=== PATIENT | female | born 1970 | race Two or more races ===

== ENCOUNTER 2022-02-25 19:44 | Inpatient (IN) | payer MEDICAID ==
[~2022-02-25] VITALS: Ht 157.5 cm; Wt 110.0 kg
[2022-02-25] MEDS ORDERED: ACETAMINOPHEN 325 MG TAB PO ONE (20:15)
[2022-02-25 20:46] LABS: Basophils # (auto) 0 10 ^3/uL (0-0.2); Basophils % (auto) 0.4 % (0.0-2.0); Eosinophils # (auto) 0 10 ^3/uL (0-0.8); Eosinophils % (auto) 0.2 % (0.0-7.0); Hemoglobin 10.6 g/dL (12.2-16.2); Lymphocytes # (auto) 0.3 10 ^3/uL (0.4-5.4); Monocytes # (auto) 0 10 ^3/uL (0-1.3); Neutrophils # (auto) 3.3 10 ^3/uL (1.6-8.6); White Blood Cell 3.6 10^3/uL (4.4-10.8)
[2022-02-25 20:48] LABS: Lymphocytes % (auto) 8.4 % (10.0-50.0); Mean Corpuscular Hemoglobin 26.6 pg (28.0-32.0); Mean Corpuscular Hgb Conc. 32.2 g/dL (32.0-36.0); Mean Corpuscular Volume 82.4 fL (80.0-100.0); Monocytes % (auto) 0.4 % (0.0-12.0); Neutrophils % (auto) 90.6 % (37.0-80.0); Nucleated Red Blood Cells % 1.8 %; Red Cell Distribution Width 18.4 % (11.8-14.3)
[2022-02-25 20:54] LABS: Albumin 2.6 g/dL (3.4-5.0); Calcium 7.8 mg/dL (8.5-10.1); Magnesium 1.9 mg/dL (1.6-2.6); Potassium 4.4 mmol/L (3.5-5.1)
[2022-02-25 20:57] LABS: BUN/Creatinine Ratio 26.2; Bilirubin, Total 0.5 mg/dL (0.2-1.0); Lactic Acid w/Reflex 5.4 mmol/L (0.4-2.0); Total Protein 5.4 g/dL (6.4-8.2)
[2022-02-25 21:14] LABS: INR 1.04 (0.9-1.15); Partial Thromboplastin Time 22.2 sec (24.6-33.4)
[2022-02-25] MEDS ORDERED: AZITHROMYCIN 500MG/ 250ML 250 ML IV ONE (23:30)
[2022-02-25] MEDS ORDERED: SODIUM CHLORIDE 0.9% 1,000 ML IV ONE (23:30)
[2022-02-25] MEDS ORDERED: cefTRIAXone 1GM/50ML D5W 50 ML IV ONE (23:30)
[2022-02-26] MEDS ORDERED: SODIUM CHLORIDE 0.9% 1,000 ML IV ONE (01:00)
[2022-02-26] MEDS ORDERED: NOREPINEPHRINE 8 MG/250ML KIT 250 ML IV ONE (01:58)
[2022-02-26] MEDS: NOREPINEPHRINE 8 MG/250ML KIT 250 ML IV SCH ×2 (02:00→12:13)
[2022-02-26] MEDS ORDERED: ACETAMINOPHEN 325 MG TAB PO PRN (03:45)
[2022-02-26] MEDS ORDERED: HYDROcodone-ACET 5/325MG TAB PO PRN (03:45)
[2022-02-26] MEDS ORDERED: DOCUSATE SOD 100 MG CAP PO PRN (03:45)
[2022-02-26] MEDS ORDERED: SODIUM CHLORIDE 0.9% 1,000 ML IV SCH (03:45)
[2022-02-26 05:59] LABS: Mean Corpuscular Hemoglobin 25.8 pg (28.0-32.0); Red Cell Distribution Width 18.5 % (11.8-14.3)
[2022-02-26 06:07] LABS: Hematocrit 32.1 % (36.0-46.0); Red Blood Cells 3.87 10^6/uL (4.0-5.20); White Blood Cell 22.2 10^3/uL (4.4-10.8)
[2022-02-26 06:16] LABS: Calcium 7.2 mg/dL (8.5-10.1); Potassium 4.4 mmol/L (3.5-5.1)
[2022-02-26 06:18] LABS: BUN/Creatinine Ratio 17.1
[2022-02-26 06:39] LABS: Basophils % (manual) 0 (0.0-2.0); Blast Cells 0; Eosinophils % (manual) 0 (0-7); Metamyelocytes % 0; Myelocytes % 0; Promyelocytes % 0; Reactive Lymphocytes 0
[2022-02-26] MEDS ORDERED: VANCOMYCIN 1GM/250ML 250 ML IV ONE (07:15)
[2022-02-26 08:03] LABS: Urine Specific Gravity 1.017 (1.001-1.035)
[2022-02-26 08:04] LABS: Urine Blood Negative /uL (Negative)
[2022-02-26 09:06] LABS: Band Neutrophils % (manual) 34; Lymphocytes % (manual) 11 (10.0-50.0); Monocytes % (manual) 3 (0-12)
[2022-02-26] MEDS: MORPHINE SULFATE INJ 2 MG/ml SYRG IV PRN ×2 (12:28→21:46)
[2022-02-26] MEDS: LIDOCAINE 1% (LOCAL ANESTH.) PF 5ml SDV ID ONE (15:00)
[2022-02-26] MEDS ORDERED: LACTATED RINGER'S 1,000 ML IV ONE (16:15)
[2022-02-26] MEDS: SODIUM BICARBONATE 50ML VIAL 50 ML in SOD CHL 0.45% 1,000 ML IV SCH (17:21)
[2022-02-26] MEDS: MEROPENEM 1GM IVPB 100 ML IV SCH (17:23)
[2022-02-26] MEDS ORDERED: AZITHROMYCIN 500MG/ 250ML 250 ML IV SCH (22:00)
[2022-02-26] MEDS ORDERED: cefTRIAXone 1GM/50ML D5W 50 ML IV SCH (22:00)
[2022-02-26] MEDS ORDERED: MEROPENEM 500MG IVPB 50 ML IV SCH (22:00)
[2022-02-26] MEDS: SODIUM CHLOR 0.9% PF (SALINE LOCK) 10ML VIAL/SYR IV SCH (22:06)
[2022-02-26] MEDS ORDERED: DEXTROSE (50%) 50ML SYRG IV PRN (22:15)
[2022-02-27] MEDS: ACCU-CHEK COMFORT CURVE STRIP VI SCH ×6 (00:10→20:12)
[2022-02-27] MEDS: InsuLIN REG 1unit/0.01ml Soln (100units/ml) SC SCH ×6 (00:10→20:00)
[2022-02-27] MEDS: SODIUM BICARBONATE 50ML VIAL 50 ML in SOD CHL 0.45% 1,000 ML IV SCH ×3 (01:42→17:54)
[2022-02-27] MEDS: MEROPENEM 1GM IVPB 100 ML IV SCH ×2 (05:11→17:00)
[2022-02-27 06:12] LABS: Potassium 4.5 mmol/L (3.5-5.1)
[2022-02-27 06:59] LABS: Hematocrit 28.3 % (36.0-46.0); Hemoglobin 9.1 g/dL (12.2-16.2); Mean Corpuscular Hemoglobin 26.7 pg (28.0-32.0); Mean Corpuscular Volume 83.5 fL (80.0-100.0); Red Blood Cells 3.39 10^6/uL (4.0-5.20); Red Cell Distribution Width 18.6 % (11.8-14.3); White Blood Cell 22.6 10^3/uL (4.4-10.8)
[2022-02-27] MEDS ORDERED: InsuLIN REG 1unit/0.01ml Soln (100units/ml) SC SCH (07:00)
[2022-02-27 07:14] LABS: Basophils % (manual) 0 (0.0-2.0); Blast Cells 0; Eosinophils % (manual) 0 (0-7); Myelocytes % 0; Promyelocytes % 0; Reactive Lymphocytes 0
[2022-02-27 09:41] LABS: Creatine Kinase IFCC 708 U/L (26-192)
[2022-02-27] MEDS: SODIUM CHLOR 0.9% PF (SALINE LOCK) 10ML VIAL/SYR IV SCH ×2 (10:00→22:21)
[2022-02-27 10:37] LABS: Band Neutrophils % (manual) 21; Lymphocytes % (manual) 4 (10.0-50.0); Metamyelocytes % 1; Monocytes % (manual) 1 (0-12)
[2022-02-27 11:02] LABS: CRP High Sensitivity > 19 mg/dL (< 0.3)
[2022-02-27] MEDS: ONDANSETRON HCL 4 MG/2 ML VIAL IV PRN (16:42)
[2022-02-27] MEDS: MORPHINE SULFATE INJ 2 MG/ml SYRG IV PRN (16:42)
[2022-02-28] MEDS: ACCU-CHEK COMFORT CURVE STRIP VI SCH ×6 (00:14→19:56)
[2022-02-28] MEDS: ONDANSETRON HCL 4 MG/2 ML VIAL IV PRN (01:22)
[2022-02-28] MEDS: MORPHINE SULFATE INJ 2 MG/ml SYRG IV PRN (01:23)
[2022-02-28] MEDS: SODIUM BICARBONATE 50ML VIAL 50 ML in SOD CHL 0.45% 1,000 ML IV SCH (01:51)
[2022-02-28] MEDS: NOREPINEPHRINE 8 MG/250ML KIT 250 ML IV SCH (02:30)
[2022-02-28] MEDS: InsuLIN REG 1unit/0.01ml Soln (100units/ml) SC SCH ×6 (04:00→19:57)
[2022-02-28] MEDS: MEROPENEM 1GM IVPB 100 ML IV SCH (05:04)
[2022-02-28 06:32] LABS: Basophils # (auto) 0 10 ^3/uL (0-0.2); Basophils % (auto) 0.2 % (0.0-2.0); Eosinophils # (auto) 0 10 ^3/uL (0-0.8); Lymphocytes # (auto) 0.7 10 ^3/uL (0.4-5.4); Neutrophils # (auto) 14.5 10 ^3/uL (1.6-8.6)
[2022-02-28 06:33] LABS: Eosinophils % (auto) 0.2 % (0.0-7.0); Hematocrit 24.1 % (36.0-46.0); Hemoglobin 7.8 g/dL (12.2-16.2); Lymphocytes % (auto) 4.7 % (10.0-50.0); Mean Corpuscular Hemoglobin 26.9 pg (28.0-32.0); Mean Corpuscular Hgb Conc. 32.4 g/dL (32.0-36.0); Mean Corpuscular Volume 83.1 fL (80.0-100.0); Monocytes # (auto) 0.5 10 ^3/uL (0-1.3); Neutrophils % (auto) 91.9 % (37.0-80.0); Red Blood Cells 2.91 10^6/uL (4.0-5.20); Red Cell Distribution Width 18.2 % (11.8-14.3); White Blood Cell 15.8 10^3/uL (4.4-10.8)
[2022-02-28 06:48] LABS: Albumin 1.9 g/dL (3.4-5.0); Calcium 7.5 mg/dL (8.5-10.1)
[2022-02-28 06:54] LABS: BUN/Creatinine Ratio 32.5; Bilirubin, Total 0.7 mg/dL (0.2-1.0); Total Protein 4.9 g/dL (6.4-8.2)
[2022-02-28] MEDS: SODIUM CHLOR 0.9% PF (SALINE LOCK) 10ML VIAL/SYR IV SCH ×2 (11:01→22:10)
[2022-02-28] MEDS: SOD CHL 0.45% 1,000 ML IV SCH ×2 (11:01→22:20)
[2022-02-28 16:00] VITALS: BP 107/66
[2022-02-28 16:38] VITALS: BP 107/66
[2022-02-28 16:45] VITALS: BP 107/66
[2022-02-28] MEDS ORDERED: EMPA1TAB PO (17:32)
[2022-02-28] MEDS: ERTAPENEM SOD INJ 1 GM in SODIUM CHL 0.9% 50 ML IV SCH (18:09)
[2022-02-28 22:00] VITALS: BP 122/71
[2022-03-01] MEDS: NOREPINEPHRINE 8 MG/250ML KIT 250 ML IV SCH (02:30)
[2022-03-01] MEDS: InsuLIN REG 1unit/0.01ml Soln (100units/ml) SC SCH ×7 (04:00→23:13)
[2022-03-01] MEDS: ACCU-CHEK COMFORT CURVE STRIP VI SCH ×7 (04:00→23:13)
[2022-03-01 05:00] VITALS: BP 139/84
[2022-03-01 05:46] LABS: Chloride 113 mmol/L (98-107); Potassium 4.1 mmol/L (3.5-5.1); Sodium 143 mmol/L (136-145)
[2022-03-01 05:51] LABS: Anion Gap 6 (5-15); BUN/Creatinine Ratio 22.9; Blood Urea Nitrogen 16 mg/dL (7-18); Calcium 7.4 mg/dL (8.5-10.1); Carbon Dioxide 24 mmol/L (21-32); GFR African American 113 mL/min; GFR Non-African American 94 mL/min; Glucose 78 mg/dL (74-106)
[2022-03-01 06:23] LABS: Basophils # (auto) 0 10 ^3/uL (0-0.2); Basophils % (auto) 0.4 % (0.0-2.0); Eosinophils # (auto) 0.1 10 ^3/uL (0-0.8); Eosinophils % (auto) 1.1 % (0.0-7.0); Hematocrit 24.8 % (36.0-46.0); Hemoglobin 8.1 g/dL (12.2-16.2); Lymphocytes # (auto) 0.8 10 ^3/uL (0.4-5.4); Lymphocytes % (auto) 9.2 % (10.0-50.0); Mean Corpuscular Hemoglobin 26.2 pg (28.0-32.0); Mean Corpuscular Hgb Conc. 32.4 g/dL (32.0-36.0); Mean Corpuscular Volume 80.8 fL (80.0-100.0); Monocytes # (auto) 0.3 10 ^3/uL (0-1.3); Neutrophils # (auto) 7.1 10 ^3/uL (1.6-8.6); Neutrophils % (auto) 85.3 % (37.0-80.0); Red Blood Cells 3.07 10^6/uL (4.0-5.20); Red Cell Distribution Width 17.6 % (11.8-14.3); White Blood Cell 8.4 10^3/uL (4.4-10.8)
[2022-03-01 08:00] VITALS: BP 145/86
[2022-03-01 09:00] VITALS: BP 145/86
[2022-03-01] MEDS: ERTAPENEM SOD INJ 1 GM in SODIUM CHL 0.9% 50 ML IV SCH (10:33)
[2022-03-01] MEDS: SODIUM CHLOR 0.9% PF (SALINE LOCK) 10ML VIAL/SYR IV SCH ×2 (10:33→22:00)
[2022-03-01] MEDS: SOD CHL 0.45% 1,000 ML IV SCH (11:40)
[2022-03-01 13:00] VITALS: BP 137/84
[2022-03-01 17:00] VITALS: BP 153/85
[2022-03-01 21:41] VITALS: BP 146/80
[2022-03-02] MEDS: SOD CHL 0.45% 1,000 ML IV SCH ×2 (00:11→14:20)
[2022-03-02] MEDS: InsuLIN REG 1unit/0.01ml Soln (100units/ml) SC SCH ×5 (03:53→20:55)
[2022-03-02] MEDS: ACCU-CHEK COMFORT CURVE STRIP VI SCH ×5 (03:53→20:00)
[2022-03-02 04:50] VITALS: BP 150/84
[2022-03-02 05:48] LABS: Basophils # (auto) 0 10 ^3/uL (0-0.2); Eosinophils # (auto) 0.1 10 ^3/uL (0-0.8); Hemoglobin 8.2 g/dL (12.2-16.2); Lymphocytes # (auto) 0.7 10 ^3/uL (0.4-5.4); Mean Corpuscular Hemoglobin 27.1 pg (28.0-32.0); Monocytes # (auto) 0.5 10 ^3/uL (0-1.3); Neutrophils # (auto) 2.3 10 ^3/uL (1.6-8.6); Nucleated Red Blood Cells % 0.2 %
[2022-03-02 05:51] LABS: Basophils % (auto) 0.8 % (0.0-2.0); Eosinophils % (auto) 3.3 % (0.0-7.0); Hematocrit 25.1 % (36.0-46.0); Lymphocytes % (auto) 19.5 % (10.0-50.0); Mean Corpuscular Hgb Conc. 32.7 g/dL (32.0-36.0); Mean Corpuscular Volume 82.9 fL (80.0-100.0); Monocytes % (auto) 12.7 % (0.0-12.0); Neutrophils % (auto) 63.7 % (37.0-80.0); Red Blood Cells 3.03 10^6/uL (4.0-5.20); Red Cell Distribution Width 17.4 % (11.8-14.3); White Blood Cell 3.6 10^3/uL (4.4-10.8)
[2022-03-02 06:00] LABS: Potassium 4.4 mmol/L (3.5-5.1)
[2022-03-02 06:07] LABS: BUN/Creatinine Ratio 12.9; Bilirubin, Total 0.5 mg/dL (0.2-1.0); Calcium 7.6 mg/dL (8.5-10.1); Total Protein 4.7 g/dL (6.4-8.2)
[2022-03-02 08:00] VITALS: BP 147/84
[2022-03-02 08:46] VITALS: BP 147/84
[2022-03-02] MEDS: ERTAPENEM SOD INJ 1 GM in SODIUM CHL 0.9% 50 ML IV SCH (09:52)
[2022-03-02] MEDS: SODIUM CHLOR 0.9% PF (SALINE LOCK) 10ML VIAL/SYR IV SCH ×2 (11:02→21:38)
[2022-03-02 13:00] VITALS: BP 145/79
[2022-03-02 17:00] VITALS: BP_SYST 150; BP_SYST 168; BP_DIAS 82
[2022-03-02 21:49] VITALS: BP 127/79
[2022-03-03] MEDS: ACCU-CHEK COMFORT CURVE STRIP VI SCH ×6 (00:43→20:37)
[2022-03-03] MEDS: InsuLIN REG 1unit/0.01ml Soln (100units/ml) SC SCH ×6 (03:44→20:46)
[2022-03-03 04:38] VITALS: BP 122/83
[2022-03-03] MEDS: SOD CHL 0.45% 1,000 ML IV SCH ×3 (06:44→11:10)
[2022-03-03 08:00] VITALS: BP 137/80
[2022-03-03 09:00] VITALS: BP 137/80
[2022-03-03] MEDS: ERTAPENEM SOD INJ 1 GM in SODIUM CHL 0.9% 50 ML IV SCH (11:11)
[2022-03-03] MEDS: SODIUM CHLOR 0.9% PF (SALINE LOCK) 10ML VIAL/SYR IV SCH ×2 (11:11→22:29)
[2022-03-03 13:00] VITALS: BP 151/65
[2022-03-03 17:00] VITALS: BP 106/79
[2022-03-03 21:37] VITALS: BP 162/80
[2022-03-04] MEDS: ACCU-CHEK COMFORT CURVE STRIP VI SCH ×7 (00:07→23:17)
[2022-03-04] MEDS: InsuLIN REG 1unit/0.01ml Soln (100units/ml) SC SCH ×7 (00:10→23:20)
[2022-03-04] MEDS: SOD CHL 0.45% 1,000 ML IV SCH (03:40)
[2022-03-04 04:36] VITALS: BP 147/75
[2022-03-04 09:00] VITALS: BP 155/79
[2022-03-04] MEDS: ERTAPENEM SOD INJ 1 GM in SODIUM CHL 0.9% 50 ML IV SCH (10:10)
[2022-03-04] MEDS: SODIUM CHLOR 0.9% PF (SALINE LOCK) 10ML VIAL/SYR IV SCH ×2 (10:11→22:15)
[2022-03-04 10:31] LABS: Hepatitis B Surface Antibody Negative (Negative)
[2022-03-04 11:08] LABS: Hepatitis A Total Antibody Positive (Negative)
[2022-03-04 13:00] VITALS: BP 153/85
[2022-03-04 15:13] LABS: Hepatitis C Antibody Negative (Negative)
[2022-03-04 17:00] VITALS: BP 145/80
[2022-03-04 22:00] VITALS: BP 170/79
[2022-03-04] MEDS ORDERED: hydrALAZINE HCL 10 MG TAB PO PRN (22:00)
[2022-03-04] MEDS ORDERED: hydrALAZINE HCL 10 MG TAB PO SCH (22:00)
[2022-03-05] MEDS: ACCU-CHEK COMFORT CURVE STRIP VI SCH ×4 (04:16→16:00)
[2022-03-05] MEDS: InsuLIN REG 1unit/0.01ml Soln (100units/ml) SC SCH ×4 (04:18→16:00)
[2022-03-05 05:00] VITALS: BP 158/80
[2022-03-05] MEDS: SODIUM CHLOR 0.9% PF (SALINE LOCK) 10ML VIAL/SYR IV SCH (08:39)
[2022-03-05] MEDS: ERTAPENEM SOD INJ 1 GM in SODIUM CHL 0.9% 50 ML IV SCH (08:39)
[2022-03-05 09:00] VITALS: BP 174/88
[2022-03-05] MEDS: SOD CHL 0.45% 1,000 ML IV SCH (10:04)
[2022-03-05 13:00] VITALS: BP 179/94
[2022-03-05 14:40] VITALS: BP 174/88
[2022-03-05 17:00] VITALS: BP 151/86
== END 2022-03-05 17:42 | disposition home health service (06) | DRG 720 ==
LOC: EDBD 19:44 → ER 19:50 → OVERFLOW 02-26 03:56 → WEST WING 02-28 15:59
PROVIDERS: ADMIT Hospitalist; ATTEND Nurse Practitioner Acute Care
PROC: 02H633Z Insertion of Infusion Device into Right Atrium, Percutaneous Approach (ICD-10-PCS; principal; 2022-02-26)
PROC: B548ZZA Ultrasonography of Superior Vena Cava, Guidance (ICD-10-PCS; 2022-02-26)
DX: A41.50 Gram-negative sepsis, unspecified (principal); N17.0 Acute kidney failure with tubular necrosis; R65.21 Severe sepsis with septic shock; N13.6 Pyonephrosis; E11.9 Type 2 diabetes mellitus without complications; B96.20 Unspecified Escherichia coli [E. coli] as the cause of diseases classified elsewhere; E66.9 Obesity, unspecified; E86.0 Dehydration; B96.89 Other specified bacterial agents as the cause of diseases classified elsewhere; K74.60 Unspecified cirrhosis of liver; R74.01 Elevation of levels of liver transaminase levels; Z20.822 Contact with and (suspected) exposure to COVID-19; Z68.42 Body mass index [BMI] 45.0-49.9, adult; Z78.9 Other specified health status; Z79.84 Long term (current) use of oral hypoglycemic drugs
CPT/HCPCS: 36415; 36569; 36600; 70450; 71045; 71250; 74176; 76705; 78582; 80048; 80053; 81003; 82550; 82805; 82962; 83605; 83690; 83735; 83880; 84484; 85007; 85025; 85027; 85379; 85610; 85730; 86141; 86704; 86706; 86708; 86803; 87040; 87077; 87086; 87088; 87186; 87340; 87426; 87804; 93005; 93970; 96361; 96365; G0378; J0696; J1335; J1815; J2185; J2405